=== PATIENT | female | born 1985 | race Caucasian/White ===

== ENCOUNTER 2024-06-06 11:43 | Emergency (ER) | payer SELFPAY ==
[2024-06-06 12:37] LABS: Specific Gravity 1.022 (1.005-1.030)
[2024-06-06 12:38] LABS: Specific Gravity 1.022 (1.005-1.030); Sqamous Epithelial <5 /HPF (None Seen); Urine Bacteria None Seen /HPF (<20); Urine Bilirubin NEGATIVE (Negative); Urine Blood 3+ (Negative); Urine Clarity Turbid (Clear); Urine Color Light-Yellow (Yellow); Urine Culture Reflex Order NOT NEEDED; Urine Glucose NEGATIVE (Negative); Urine Ketones NEGATIVE (Negative); Urine Microscopic Reflex YN ORDER UMIC; Urine Mucus Slight /HPF (None Seen); Urine Nitrite NEGATIVE (Negative); Urine Protein NEGATIVE (Negative); Urine Urobilinogen Normal (Normal); Urine WBC <5 /HPF (<5); Urine pH 5.5 (5.0-7.0)
--- NOTE | 2024-06-06 13:59 | RAD REPORT ---
EXAMINATION: Transvaginal Study Probe CLINICAL INDICATION: Vaginal bleeding TECHNIQUE: Real-time ultrasonography of the pelvis was performed transvaginally. Color and spectral D oppler evaluation of the ovaries was performed. COMPARISON: No prior exam. FINDINGS: The uterus [id number] x 6 x 6 cm. A fibroid is not seen. Nabothian cysts within the cervix. The endometrial stripe measures 2.2 cm. Right ovary normal in size and echotexture. Left ovary normal in size and echotexture. Right and left adnexa unremarkable No significant free fluid IMPRESSION: Prominence of the endometrium. This may be related to the normal menstrual cycle. However, as patholo gy can have this appearance it is recommended that patient have a follow-up endovaginal sonogram in approximately 6 weeks for reevaluation
--- NOTE | 2024-06-06 14:05 | ER ---
Nurse's Notes [facility] Name: Tri Madsen Age: 39 yrs Sex: Female : 1985 Arrival Date: 06/06/2024 Time: 11:43 Bed 4 Private MD: Diagnosis: Abnormal uterine and vaginal bleeding, unspecified;Other hemorrhoids Presentation: 06/06 11:53 Chief complaint: Heavy vaginal bleeding and cramping x 1 month. Coronavirus screen: At this time, the client does not indicate any symptoms associated with coronavirus-19. Ebola Screen: No symptoms or risks identified at this time. Initial Sepsis Screen: Does the patient meet any 2 criteria? No. Patient's initial sepsis screen is negative. Does the patient have a suspected source of infection? No. Patient's initial sepsis screen is negative. Risk Assessment: Do you want to hurt yourself or someone else? Patient reports no desire to harm self or others. Onset of symptoms was April 2024. 11:53 Method Of Arrival: Ambulatory hb 11:53 Acuity: LISBET 3 hb Historical: - Allergies: 11:54 No Known Allergies; hb - Home Meds: 11:54 None [Active]; hb - PMHx: 11:54 None; hb - PSHx: 11:55 Tubal Ligation; hb - Immunization history:: Adult Immunizations up to date. - Infectious Disease History:: Denies. - Social history:: Smoking status: Patient denies any tobacco usage or history of. Screenin:20 [facility] ED Fall Risk Assessment (Adult) History of falling in the last 3 months, aa5 including since admission No falls in past 3 months (0 pts) Confusion or Disorientation No (0 pts) Intoxicated or Sedated No (0 pts) Impaired Gait No (0 pts) Mobility Assist Device Used No (0 pt) Altered Elimination No (0 pt) Score/Fall Risk Level 0 - 2 = Low Risk Oriented to surroundings, Maintained a safe environment, Educated pt \T\ family on fall prevention, incl call for assistance when getting out of bed. Abuse screen: Denies threats or abuse. Nutritional screening: No deficits noted. Tuberculosis screening: No symptoms or risk factors identified. Assessment: 12:20 General: Appears comfortable, Behavior is calm, cooperative. Pain: Complains of pain in aa5 right lower quadrant and left lower quadrant Quality of pain is described as crampy, Pain began 1 month ago. Neuro: Level of Consciousness is awake, alert, obeys commands, Oriented to person, place, time, situation. Cardiovascular: Patient's skin is warm and dry. Respiratory: Airway is patent Respiratory effort is even, unlabored, Respiratory pattern is regular, symmetrical. GI: No signs and/or symptoms were reported involving the gastrointestinal system. : Reports vaginal bleeding that is moderate flow, since 1 month ago. EENT: No signs and/or symptoms were reported regarding the EENT system. Derm: Skin is pink, warm \T\ dry. Musculoskeletal: Range of motion: intact in all extremities. Vital Signs: 11:53 BP 142 / 89; Pulse 89; Resp 16; Temp 97.8; Pulse Ox 99% on R/A; Weight 99.79 kg; Height hb 5 ft. 5 in. ; Pain 10/10; 13:30 BP 134 / 86; Pulse 82; Resp 16; Pulse Ox 99% ; ko1 11:53 Body Mass Index 36.61 (99.79 kg, 165.1 cm) hb 11:53 Pain Scale: Adult hb ED Course: 11:46 Patient arrived in ED. ra3 11:49 [facility]hart [facility]C [facility] kb 11:49 Lj Sanchez MD is Attending Physician. kb 11:54 Triage completed. hb 11:55 Arm band placed on. hb 11:58 Teresa Carreon, RN is Primary Nurse. aa5 12:20 Patient has correct armband on for positive identification. Placed in gown. Bed in low aa5 position. Call light in reach. Side rails up X 1. Adult w/ patient. Pulse ox on. NIBP on. 12:31 Urine collected: clean catch specimen, sent to lab. aa5 13:21 Transvaginal Study (Probe) In Process Unspecified. EDMS 13:30 Provided Education on: labs. ko1 14:13 No provider procedures requiring assistance completed. Patient did not have IV access aa5 during this emergency room visit. Administered Medications: No medications were administered Medication: 14:11 VIS not applicable for this client. aa5 Outcome: 13:30 Discharged to home ambulatory, with family, ko1 13:30 Condition: stable 13:30 Discharge instructions given to patient, family, Instructed on discharge instructions, follow up and referral plans. Demonstrated understanding of instructions, follow-up care, 14:04 Discharge ordered by MD. christy 14:21 Patient left the ED. ko1 Signatures: Dispatcher [employer] EDDalila Roberts, VICE PRESIDENT OF ENGINEERING-C VICE PRESIDENT OF ENGINEERING-Teresa Vega, RN RN aa5 Samantha Spicer RN RN hb Jyothi Esparza RN RN ko1 Ella Pandya ra3 Corrections: (The following items were deleted from the chart) 11:55 11:54 PSHx: None; hb hb 11:56 11:53 BP 157 / 108; Pulse 89bpm; Resp 16bpm; Pulse Ox 99% RA; Temp 97.8F; 99.79 kg; hb Height 5 ft. 5 in.; BMI: 36.6; Pain 05/07, Adult; hb
--- NOTE | 2024-06-06 14:06 | EDPHYS ---
Physician Documentation [facility] Name: Tri Madsen Age: 39 yrs Sex: Female : 1985 Arrival Date: 06/06/2024 Time: 11:43 Bed 4 Private MD: ED Physician Lj Sanchez HPI: 06/06 12:18 This 39 yrs old Female presents to ER via Ambulatory with complaints of Vaginal kb bleeding and cramping. 12:18 Pt is a 39 year old female who presents for lower abd cramping and vaginal spotting kb that started one month ago after getting her first depo shot. States she has heavy periods so she got the depo to help control them. Denies heavy bleeding. . Historical: - Allergies: 11:54 No Known Allergies; hb - Home Meds: 11:54 None [Active]; hb - PMHx: 11:54 None; hb - PSHx: 11:55 Tubal Ligation; hb - Immunization history:: Adult Immunizations up to date. - Infectious Disease History:: Denies. - Social history:: Smoking status: Patient denies any tobacco usage or history of. ROS: 12:18 Constitutional: As per HPI kb Exam: 12:18 Constitutional: This is a well developed, well nourished patient who is awake, alert, kb and in no acute distress. Head/Face: Normocephalic, atraumatic. ENT: Moist Mucous membranes Cardiovascular: Regular rate Respiratory: Respirations even and unlabored. No increased work of breathing. Talking in full sentences Abdomen/GI: Soft, non-tender. No distention Skin: Warm, dry with normal turgor. Normal color. MS/ Extremity: Pulses equal, no cyanosis. Neurovascular intact. Full, normal range of motion. Neuro: Awake and alert, GCS 15, oriented to person, place, time, and situation. 12:18 Abdomen/GI: Rectal exam: hemorrhoid(s), external, with associated bleeding, with inflammation, with pain, Vital Signs: 11:53 BP 142 / 89; Pulse 89; Resp 16; Temp 97.8; Pulse Ox 99% on R/A; Weight 99.79 kg; Height hb 5 ft. 5 in. ; Pain 10/10; 13:30 BP 134 / 86; Pulse 82; Resp 16; Pulse Ox 99% ; ko1 11:53 Body Mass Index 36.61 (99.79 kg, 165.1 cm) hb 11:53 Pain Scale: Adult hb MDM: 11:49 Medical Screening Exam initiated kb 12:18 Data reviewed: vital signs, nurses notes. kb 14:03 Differential diagnosis: abnormal menstruation, uti, hemorrhoids, rash. Counseling: I kb had a detailed discussion with the patient and/or guardian regarding the historical points, exam findings, and any diagnostic results supporting the discharge/admit diagnosis, lab results, radiology results, the need for outpatient follow up, an OB/Gyne specialist, to return to the emergency department if symptoms worsen or persist or if there are any questions or concerns that arise at home. 14:05 Test considered but Not performed: Labs: cbc considered but vss, pt denies heavy kb bleeding/dizziness/shortness of breath. 11 11:49 Order name: Test, Urine; Complete Time: 12:39 kb 06/06 11:49 Order name: Urinalysis w/ reflexes; Complete Time: 12:39 kb 06/06 12:03 Order name: US Transvaginal Study (Probe); Complete Time: 14:00 kb Administered Medications: No medications were administered Disposition: 15:03 Co-signature as Attending Physician, Lj Sanchez MD I reviewed the patient's care rt provided by the Advanced Practice Provider and agree with the diagnosis and treatment plan. Disposition Summary: 06/06/24 14:04 Discharge Ordered Notes: Location: Home kb Condition: Stable kb Diagnosis - Abnormal uterine and vaginal bleeding, unspecified kb - Other hemorrhoids kb Followup: kb - With: Emergency Department - When: As needed - Reason: Worsening of condition Followup: kb - With: Private Physician - When: 2 - 3 days - Reason: Recheck today's complaints, Continuance of care, Re-evaluation by your physician Discharge Instructions: - Discharge Summary Sheet kb - Hemorrhoids, [id number] kb - Abnormal Uterine Bleeding, [id number] kb Forms: - Medication Reconciliation Form kb - Antibiotic Education kb - Prescription Opioid Use kb - Patient Portal Instructions kb - Leadership Thank You Letter kb Signatures: Dispatcher [employer] Dalila Marte, Samantha Cai RN RN Lj Ley MD MD rt Corrections: (The following items were deleted from the chart) 11:55 11:54 PSHx: None; hb hb 12:03 12:03 Transvaginal Study (Probe)+[email or web address] ordered. EDMS EDMS
[2024-06-06 14:34] VITALS: TEMP 97.8; O2SAT 99
[2024-06-06 14:36] VITALS: BP 134/86
== END 2024-06-06 14:21 | disposition home or self-care (01) ==
LOC: ER 11:43
DX: N93.9 Abnormal uterine and vaginal bleeding, unspecified (principal); K64.8 Other hemorrhoids
CPT/HCPCS: 76830; 81001; 81025; 99283